=== PATIENT | male | born 2005 ===

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

== ENCOUNTER → 2025-01-06 17:42 | Outpatient (CLI) | payer OTHER, SELFPAY ==
--- NOTE | 2025-01-06 17:44 | DI.RAD.S_ITS ---
PROCEDURE: XR RIBS LT MIN 3V W CXR1V INDICATIONS: 3 through 5 lateral rib pain L and I TECHNIQUE: 2 views of the ribs were acquired, along with a single view chest. COMPARISON: None. FINDINGS: Heart, mediastinum and pulmonary vascular: Heart is normal in size and configuration. Mediastinum is unremarkable. Pulmonary vascular is normal. Lungs: Clear Pleural spaces: Normal-no effusions or pneumothorax. Bones and soft tissues: Normal . Left ribs are normal IMPRESSION: Normal chest and left ribs Dictated by: Haseeb Nicholson M.D. on 01/08/2025 at 12:52 Approved by: Haseeb Nicholson M.D. on 01/08/2025 at 12:53
== END ==
LOC: RAD 17:43
PROVIDERS: PCP Family Medicine; Referring Provider Nurse Practitioner Family; Visit Provider Nurse Practitioner Family
DX: R07.89 Other chest pain (principal)
CPT/HCPCS: 71101